=== PATIENT | male | born 1950 | race Caucasian/White ===

== ENCOUNTER → 2017-06-27 | Day surgery (SDC) | payer MEDICARE, BC ==
[~2017-06-27] MED LIST: CIPRO XR 500 M500 MG PO; FLOMAX0.4 M1 DOB; NO MEDICATIONS; PERCOCET7.5 PO; ZOFRAN ODT4 MG PO
--- NOTE | ~2017-06-27 | OR ---
Unit #: [id number] #: [id number] Patient: JANETH THOMPSON [id number] [address] [place], [place] [address] [id number] O MR#: [id number] NAME: JANETH THOMPSON. ROOM: Date of Procedure: 06/27/2017 Admission Date: 06/27/2017 Surgeon: Dayton Colón M.D. : 1950 Attending Physician: Dayton Colón M.D. Primary Care Physician: Christian Oscar M.D. OPERATIVE REPORT JOB NOTE: VERIFY MRN PREOPERATIVE DIAGNOSIS Raised irregular enlarging skin lesion, upper back. POSTOPERATIVE DIAGNOSIS Raised irregular enlarging skin lesion, upper back. PROCEDURE PERFORMED Excision of raised irregular enlarging skin lesion upper back with layered closure, 7 x 3 cm. ANESTHESIA Versed 2 mg, Demerol 50 mg each IV push in divided dosages with continuous cardiac and O2 saturation monitoring, 1% Xylocaine plain local anesthesia. FINDINGS The area was excised with negative gross margins. SPECIMENS Sent to pathology. COMPLICATIONS None apparent. CONDITION The patient tolerated the procedure well. INDICATIONS FOR PROCEDURE The patient is a 66-year-old white male, who presents at this time for excision of a raised irregular enlarging skin lesion of the upper back. DESCRIPTION OF PROCEDURE After obtaining informed consent as well as receiving preoperative antibiotics, the patient was brought to the operating room and after being placed in the right lateral decubitus position with all areas carefully padded and an axillary roll in place. The patient had adequate conscious sedation administered. The area was sterilely prepped. It was anesthetized with 1% Xylocaine plain local anesthesia. An elliptical incision was made longitudinally approximately 7 x 3 cm with a knife and taken down through the subdermal tissues and subcutaneous tissues with electrocautery. A full thickness excision was performed. The specimen Unit #: [id number] #: [id number] Patient: JANETH THOMPSON sent to pathology. The wound was irrigated and hemostasis was obtained with the Bovie. The deep tissues were reapproximated with interrupted 3-0 Vicryl sutures and the skin was closed with interrupted 4-0 nylon vertical mattress sutures. A dry dressing was applied followed by a Tegaderm dressing. Needle counts, sponge counts, and instrument counts were all correct as reported by the scrub nurse x2. The patient went from the operating room to the recovery room in stable condition. Dictated by... Topher Mirza/vicky TD: 06/27/2017 12:23 JOB #: [id number] [facility] OPERATIVE REPORT Page 1 of 1 X Dayton Colón MD X PROCEDURE OPERATIVE NOTE
== END | disposition home or self-care (01) ==
LOC: CSUR 07:08
DX: C44.519 Basal cell carcinoma of skin of other part of trunk (principal); L98.429 Non-pressure chronic ulcer of back with unspecified severity; Z87.440 Personal history of urinary (tract) infections; Z87.891 Personal history of nicotine dependence; Z98.52 Vasectomy status; Z98.890 Other specified postprocedural states
CPT/HCPCS: 88305; J0690; J2175; J2250